=== PATIENT | female | born 1955 ===

== ENCOUNTER 2021-03-04 11:45 | Outpatient (REF) | payer OTHER, SELFPAY | END 2021-03-04 11:46 | disposition home or self-care (01) | LOC: HO.LNP 11:45 | PROVIDERS: Visit Provider Physician Assistant Medical | DX: Z20.822 Contact with and (suspected) exposure to COVID-19 (principal); J40 Bronchitis, not specified as acute or chronic | CPT/HCPCS: U0003; U0005 ==